=== PATIENT | female | born 1980 ===

== ENCOUNTER 2016-08-05 04:05 | Emergency (ER) | payer MEDICAID ==
[2016-08-05 04:25] VITALS: BP 112/74; PULSE 92; TEMP 98.7; O2SAT 98
[2016-08-05] MEDS ORDERED: Albuterol-Ipratrop 3 mg / 0.5 (3 ml) UD INH STA (04:28)
[2016-08-05 04:29] VITALS: RESP 18
--- NOTE | 2016-08-05 04:31 | ED PDOC ---
HPI: General Adult Time Seen by Provider: 08/05/16 04:10 Chief Complaint (Nursing): Shortness Of Breath History Per: Patient Additional Complaint(s): Pt. brought in by [facility] and is currently under arrest. Pt. states she is having wheezing. Reports having an asthma attack everyday. Pt. states she requested to get ventolin pump but she was not given it. Denies SI/HI, hallucinations. Past Medical History Reviewed: Historical Data, Nursing Documentation, Vital Signs Vital Signs: Last Vital Signs Temp 98.7 F 08/05/16 04:18 Pulse 92 H 08/05/16 04:18 Resp 18 08/05/16 04:27 BP 112/74 08/05/16 04:18 Pulse Ox 98 08/05/16 04:54 - Medical History PMH: Asthma, Schizophrenia Denies: Diabetes, Hepatitis, HIV, HTN, Chronic Kidney Disease, Seizures, Sexually Transmitted Disease - Surgical History Surgical History: Appendectomy - Family History Family History: States: No Known Family Hx - Immunization History Hx Tetanus Toxoid Vaccination: No Hx Influenza Vaccination: No Hx Pneumococcal Vaccination: No - Home Medications Home Medications: Ambulatory Orders Medication Instructions Recorded Albuterol HFA [Ventolin HFA 90 2 puff PO PRN PRN 08/05/16 mcg/actuation (8 g)] Alprazolam [Xanax] 2 mg PO BID 08/05/16 Lurasidone HCl [Latuda] 60 mg PO DAILY 08/05/16 clonazePAM [Klonopin] 1 mg PO DAILY 08/05/16 traZODone [Desyrel] 50 mg PO DAILY 08/05/16 - Allergies Allergies/Adverse Reactions: Allergies Allergy/AdvReac Type Severity Reaction Status Date / Time No Known Allergies Allergy Verified 08/05/16 04:18 Review of Systems ROS Statement: Except As Marked, All Systems Reviewed And Found Negative Respiratory: Positive for: Wheezing Physical Exam - Reviewed Nursing Documentation Reviewed: Yes Vital Signs Reviewed: Yes - Physical Exam Appears: Positive for: Well, Non-toxic, No Acute Distress (speaking in full sentences) Head Exam: Positive for: ATRAUMATIC, NORMAL INSPECTION, NORMOCEPHALIC Skin: Positive for: Normal Color, Warm, DRY Eye Exam: Positive for: EOMI, Normal appearance, PERRL ENT: Positive for: Normal ENT Inspection Neck: Positive for: Normal, Painless ROM Cardiovascular/Chest: Positive for: Regular Rate, Rhythm Respiratory: Positive for: Wheezing (b/l expiratory wheezing) Gastrointestinal/Abdominal: Positive for: Normal Exam, Soft. Negative for: Tenderness Back: Positive for: Normal Inspection Extremity: Positive for: Normal ROM Neurologic/Psych: Positive for: Alert, Oriented. Negative for: Aphasia, Facial Droop - ECG O2 Sat by Pulse Oximetry: 98 - Progress ED Course And Treament: DuoNeb x 2 given. Pt. evaluated by Gita snow, who spoke with Dr. Quintana and cleared pt. for incarceration. Re-evaluation Time: 04:52 Condition: Re-examined, Improved Disposition - Clinical Impression Clinical Impression: Bronchospasm, acute - Patient ED Disposition Is Patient to be Admitted: No - Disposition Disposition: Discharged/Transfer to Law Enforcement Disposition Time: 04:53 Condition: IMPROVED Additional Instructions: Patient is medically and psychiatrically cleared for incarceration. Instructions: Bronchospasm (ED)
== END 2016-08-05 05:38 ==
LOC: H.ER 04:05
DX: J98.01 Acute bronchospasm (principal); J45.909 Unspecified asthma, uncomplicated; F20.9 Schizophrenia, unspecified

== ENCOUNTER 2017-06-13 04:11 | Emergency (ER) | payer MEDICAID ==
[2017-06-13 04:11] VITALS: BMI 28.3
[2017-06-13 04:23] VITALS: RESP 18; TEMP 97.9; O2SAT 99
[2017-06-13] MEDS ORDERED: Albuterol-Ipratrop 3 mg / 0.5 (3 ml) UD ONE (04:52)
[2017-06-13] MEDS: Albuterol-Ipratrop 3 mg / 0.5 (3 ml) UD IH SCH (04:55)
--- NOTE | 2017-06-13 05:21 | ED PDOC ---
HPI: Psych/Substance Abuse Time Seen by Provider: 06/13/17 04:14 Chief Complaint (Nursing): Medical Clearance Chief Complaint (Provider): medical and psychiatry clearance History/Exam Limitations: no limitations Onset/Duration Of Symptoms: Days (06/13/17) Additional Complaint(s): 37 year old female is under police custody presents to the ED for medical and psychiatry clearance. Patient has a history of asthma and shes wheezing. 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 States shes afraid she might be withdrawing because she has abdominal pain and nausea. Also reports of a mild headache. Patient is asking for narcotics. Denies fever, cough, chest pain, depression, SI, HI, hallucinations, or any other complaints. PMD: Provider TBD Past Medical History Reviewed: Historical Data, Nursing Documentation, Vital Signs Vital Signs: Last Vital Signs Temp 97.9 F 06/13/17 04:15 Pulse 98 H 06/13/17 04:15 Resp 18 06/13/17 04:15 BP 115/64 06/13/17 04:15 Pulse Ox 99 06/13/17 04:15 - Medical History PMH: Asthma, Schizophrenia Denies: Diabetes, Hepatitis, HIV, HTN, Chronic Kidney Disease, Seizures, Sexually Transmitted Disease - Surgical History Surgical History: Appendectomy - Family History Family History: States: Unknown Family Hx - Immunization History Hx Tetanus Toxoid Vaccination: Yes Hx Influenza Vaccination: Yes Hx Pneumococcal Vaccination: Yes - Home Medications Home Medications: Ambulatory Orders Medication Instructions Recorded Albuterol HFA [Ventolin HFA 90 1 puff INH RQ4 PRN #1 inhaler 05/28/17 mcg/actuation (8 g)] Multivitamins [Hexavitamin] 1 tab PO DAILY #30 tab 05/28/17 QUEtiapine [SEROquel] 200 mg PO BID #60 tab 05/28/17 traZODone [Desyrel] 50 mg PO HS PRN #30 tab 05/28/17 predniSONE [predniSONE Tab] 40 mg PO DAILY #8 tab 06/13/17 - Allergies Allergies/Adverse Reactions: Allergies Allergy/AdvReac Type Severity Reaction Status Date / Time No Known Allergies Allergy Verified 05/22/17 10:10 Review of Systems ROS Statement: Except As Marked, All Systems Reviewed And Found Negative Constitutional: Negative for: Fever Cardiovascular: Negative for: Chest Pain Respiratory: Negative for: Cough Physical Exam - Physical Exam Comments: GENERAL APPEARANCE: Patient is awake, alert, oriented x 3, in no acute distress. Patient is able to tolerate fluids PO. SKIN: Warm, dry; (-) cyanosis. EYES: (-) conjunctival pallor. ENMT: Mucous membranes moist. Airway patent: (-) stridor. Pharynx: (-) swelling, (-) erythema. NECK: (-) tenderness, (-) stiffness, (-) lymphadenopathy. CHEST AND RESPIRATORY: (+) bilateral expiratory wheezing; (-) rales, (-) rhonchi, (-) rub; breath sounds equal bilaterally. HEART AND CARDIOVASCULAR: (-) irregularity; (-) murmur, (-) gallop. ABDOMEN AND GI: Soft; (-) tenderness. EXTREMITIES: (-) deformity, (-) edema. NEURO AND PSYCH: Mental status as above; (-) focal findings. - ECG O2 Sat by Pulse Oximetry: 99 (RA) Pulse Ox Interpretation: Normal Medical Decision Making Medical Decision Making: Time: 441 Initial Plan: --Duoneb 3mg/0.5mg 3ml --Toradol 60mg --Zofran 4mg --prednisone 60mg --Nebulizer treatment --peak flow pre/post treatment --Reevaluation On re-evaluation, patient reports improvement of symptoms, denies any chest pain or SOB. On exam, patient remains AAOx3, in no acute distress. Continue to tolerate po fluids. Lungs clear to auscultation, no wheezing, cardiac RRR, abdomen soft, non-tender, repeat neuro exam shows no focal findings. VSS. Patient seen and evaluated by crisis. After crisis evaluation, plan will be for outpatient f/u as per Dr. Guardado. Based on history and exam, plan will be for outpatient follow up, patient will be d/c to the custody of police. Patient given ventolin inhaler and a Rx for prednisone upon d/c. Scribe Attestation: Documented by Valencia Perez, acting as a scribe for Leigha Dudley PA-C Provider Scribe Attestation: All medical record entries made by the Scribe were at my direction and personally dictated by me. I have reviewed the chart and agree that the record accurately reflects my personal performance of the history, physical exam, medical decision making, and the department course for this patient. I have also personally directed, reviewed, and agree with the discharge instructions and disposition. Disposition - Clinical Impression Clinical Impression: Asthma - Patient ED Disposition Is Patient to be Admitted: No Counseled Patient/Family Regarding: Diagnosis, Need For Followup, Rx Given - Disposition Disposition: Discharged/Transfer to Law Enforcement Disposition Time: 05:45 Condition: IMPROVED Additional Instructions: Patient is being discharged with a ventolin inhaler and a prescription for prednisone. Patient is medically and psychiatrically cleared for incarceration. Return to the ER at any time for any new or worsening symptoms. Prescriptions: predniSONE [predniSONE Tab] 40 mg PO DAILY #8 tab Instructions: Asthma in Adults Forms: [employer] (Palestinian) - PA / DEBRANDER / Resident Statement MD/DO has reviewed & agrees with the documentation as recorded.
[2017-06-13] MEDS ORDERED: Albuterol HFA 90 mcg/actuation (8 g) INH STA (05:43)
[2017-06-13 06:03] VITALS: BP 123/85; PULSE 89
== END 2017-06-13 06:03 ==
LOC: H.ER 04:11
DX: J45.909 Unspecified asthma, uncomplicated (principal); F20.9 Schizophrenia, unspecified
CPT/HCPCS: 94640; 96372; 99281; J1885

== ENCOUNTER 2018-03-26 02:25 | Emergency (ER) | payer MEDICAID ==
[2018-03-26 02:40] VITALS: BMI 31.1
--- NOTE | 2018-03-26 02:56 | ED PDOC ---
HPI: Psych/Substance Abuse Time Seen by Provider: 03/26/18 02:36 Chief Complaint (Provider): Psychiatric Evaluation ED Caveat: Intoxicated History Per: Patient, EMS History/Exam Limitations: intoxication Associated Symptoms: Other (Delusional behavior) Additional Complaint(s): 37 years old female with history of psychosis, schizophrenia, bipolar disorder, alcohol and substance abuse brought in by EMS for crisis evaluation for acute delusional behavior. Patient reported wandering in a parking lot and yelling until EMS reported to the lot. Patient is noticed to be speaking about various "forces" and appears internally preoccupied. She is uncooperative, unable to provide history due to her condition. PMD: None provided Past Medical History Reviewed: Historical Data, Nursing Documentation, Vital Signs - Medical History PMH: Asthma, Bipolar Disorder, Schizophrenia Denies: Diabetes, Hepatitis, HIV, HTN, Chronic Kidney Disease, Seizures, Sexually Transmitted Disease - Surgical History Surgical History: Appendectomy - Family History Family History: States: Unknown Family Hx - Social History Current smoker - smoking cessation education provided: No (Unknown) Alcohol: None (Unknown) Drugs: Denies (Unknown) - Immunization History Hx Tetanus Toxoid Vaccination: Yes Hx Influenza Vaccination: Yes Hx Pneumococcal Vaccination: Yes - Home Medications Home Medications: Ambulatory Orders Medication Instructions Recorded Albuterol HFA [Ventolin HFA 90 1 puff INH RQ4 PRN #1 inhaler 05/28/17 mcg/actuation (8 g)] Multivitamins [Hexavitamin] 1 tab PO DAILY #30 tab 05/28/17 QUEtiapine [SEROquel] 200 mg PO BID #60 tab 05/28/17 traZODone [Desyrel] 50 mg PO HS PRN #30 tab 05/28/17 predniSONE [predniSONE Tab] 40 mg PO DAILY #8 tab 06/13/17 - Allergies Allergies/Adverse Reactions: Allergies Allergy/AdvReac Type Severity Reaction Status Date / Time No Known Allergies Allergy Verified 05/22/17 10:10 Review of Systems Review Of Systems: ROS cannot be obtained secondary to pt's inabilty to answer questions. Physical Exam - Reviewed Nursing Documentation Reviewed: Yes Vital Signs Reviewed: Yes - Physical Exam Appears: Positive for: Well, No Acute Distress Head Exam: Positive for: ATRAUMATIC, NORMOCEPHALIC Skin: Positive for: Normal Color, Warm, Dry Eye Exam: Positive for: Normal appearance, EOMI, PERRL Neck: Positive for: Normal, Painless ROM, Supple Cardiovascular/Chest: Positive for: Regular Rate, Rhythm. Negative for: Murmur Respiratory: Positive for: Normal Breath Sounds. Negative for: Wheezing Gastrointestinal/Abdominal: Positive for: Normal Exam, Soft. Negative for: [place] Back: Positive for: Normal Inspection. Negative for: L CVA Tenderness, R CVA Tenderness Extremity: Positive for: Normal ROM. Negative for: Pedal Edema, Swelling Neurologic/Psych: Positive for: Alert, Oriented (x3) - Laboratory Results Result Diagrams: 03/26/18 04:12 03/26/18 04:12 - Critical Care Total Time (In Min): 30 Medical Decision Making Medical Decision Making: Time: 0240 Initial Impression: 28 years old female with acute psychosis insetting of history of substance abuse Initial Plan: --Alcohol Serum --CMP --Drug Screen --Crisis evaluation --Urine --Urine dipstick --CBC --Ativan 2 mg IM --Haldol 5 mg IM --1:1 Observation 0551 --Labs reviewed and show no clinically significant abnormality with exception of positive U-tox --Patient is calm, cooperative, sober and stable for discharge --Clinical impression: Bipolar disorder and substance induced mood disorder Scribe Attestation: Documented by Negin Troncoso, acting as a scribe John Wallace MD. Provider Scribe Attestation: All medical record entries made by the Scribe were at my direction and personally dictated by me. I have reviewed the chart and agree that the record accurately reflects my personal performance of the history, physical exam, medical decision making, and the department course for this patient. I have also personally directed, reviewed, and agree with the discharge instructions and disposition. Disposition - Clinical Impression Clinical Impression: Substance induced mood disorder, Bipolar disorder - Patient ED Disposition Is Patient to be Admitted: No - Disposition Disposition: Routine/Home Disposition Time: 05:51 Condition: STABLE Additional Instructions: FOR ADDICTION SERVICES CONTACT ID ADDICTION SERVICES HOTLINE 24/ FOR MENTAL HEALTH SERVICES FOLLOW UP [facility] [address] [place] [address] FRIDAY-FRIDAY FROM 9AM-8PM FRIDAY AND FRIDAY FROM 10AM-6PM FOR [facility] PLACEMENT [facility] [address] [place], [place] Instructions: Bipolar Disorder, Drug Abuse Treatment Forms: [employer] (Turkish)
[2018-03-26 04:16] LABS: BASO # 0.1 K/uL (0.0-0.2); BASO % 0.4 % (0.0-2.0); EOS # 0.1 K/uL (0.0-0.7); EOS % 0.5 % (0.0-4.0); HEMOGLOBIN 14.3 g/dL (12.0-16.0); LYMPH # 1.9 K/uL (1.0-4.3); MEAN CELL VOLUME 91.6 fl (81.0-99.0); MEAN CORPUSCULAR HEMOGLOBIN 29.6 pg (27.0-31.0); MEAN CORPUSCULAR HGB CONC 32.3 g/dL (33.0-37.0); MEAN PLATELET VOLUME 7.8 fl (7.2-11.7); MONO % 7.3 % (0.0-10.0); NEUT # 10.5 K/uL (1.8-7.0); NEUT % 77.8 % (50.0-75.0); NRBC % 0.1 % (0.0-0.0); RBC 4.83 Mil/uL (3.80-5.20); RED CELL DISTRIBUTION WIDTH 13.4 % (11.5-14.5); WHITE BLOOD COUNT 13.5 K/uL (4.8-10.8)
[2018-03-26 04:25] LABS: ALB/GLOB RATIO 1.1 (1.0-2.1); ALBUMIN 3.9 g/dL (3.5-5.0); ALT/SGPT 230 U/L (9-52); AST/SGOT 35 U/L (14-36); BLOOD UREA NITROGEN 17 mg/dl (7-17); CALCIUM 9.2 mg/dL (8.4-10.2); GFR NON-AFRICAN AMERICAN > 60
[2018-03-26 04:43] VITALS: RESP 18
[2018-03-26 05:10] LABS: BARBITURATES, UR NEGATIVE (NEGATIVE)
[2018-03-26 05:15] LABS: BENZODIAZEPINES, UR POSITIVE (NEGATIVE); OPIATES, UR POSITIVE (NEGATIVE); PHENCYCLIDINE, UR NEGATIVE (NEGATIVE)
[2018-03-26 06:10] VITALS: BP 141/89; PULSE 65; TEMP 97.9; O2SAT 100
== END 2018-03-26 06:11 | disposition home or self-care (01) ==
LOC: H.ER 02:25
DX: F19.94 Other psychoactive substance use, unspecified with psychoactive substance-induced mood disorder (principal); F31.9 Bipolar disorder, unspecified; F20.9 Schizophrenia, unspecified
CPT/HCPCS: 80053; 80320; 80324; 80345; 80346; 80349; 80353; 80358; 80361; 81025; 82948; 83992; 85025; 96372; 99285; J1630; J2060